=== PATIENT | male | born 1955 | race Caucasian/White ===

== ENCOUNTER 2021-07-18 11:16 | Outpatient (CLI) | payer MEDICARE, SELFPAY ==
--- NOTE | ~2021-07-18 | XR_ITS ---
EXAMINATION: XR chest 2V DATE: 07/18/2021 11:38 INDICATION: Chronic cough. TECHNIQUE: Frontal and lateral views of the chest were obtained. COMPARISON: Chest 2 views 04/17/2018 FINDINGS: There is mild atelectasis versus scarring at right lung base. No pleural effusion or pneumo thorax. Cardiomegaly is noted. Calcified hilar and mediastinal lymph nodes are consistent with old gr anulomatous disease. IMPRESSION: 1. Mild atelectasis versus scarring at right lung base. 2. Cardiomegaly. Reviewed, dictated and finalized at location B.
--- NOTE | ~2021-07-18 | XR_ITS ---
EXAM: XR sinus min 3V HISTORY: J34.89 - Other specified disorders of nose and nasal sinuses COMPARISON: None available FINDINGS: Normal mineralization. No abnormal intracranial calcification. Orbits are symmetric. No fr acture. Aerated spaces are clear. IMPRESSION: Normal sinus radiograph findings. Reviewed, dictated and finalized at location K.
== END 2021-07-18 11:17 | disposition home or self-care (01) ==
LOC: ANHIMG 11:19
PROVIDERS: PCP Internal Medicine; Visit Provider Internal Medicine
DX: J34.89 Other specified disorders of nose and nasal sinuses (principal); R05.3 Chronic cough; R09.81 Nasal congestion; R09.82 Postnasal drip; R51.9 Headache, unspecified; I51.7 Cardiomegaly
CPT/HCPCS: 70220; 71046

== ENCOUNTER 2022-11-06 10:38 | Outpatient (CLI) | payer MEDICARE, SELFPAY ==
--- NOTE | ~2022-11-06 | US_ITS ---
EXAMINATION: US venous doppler [facility] DATE: 11/06/2022 12:33 INDICATION: Lower limb edema. TECHNIQUE: Grayscale ultrasound images without and with compression and Doppler ultrasound images of the bilateral lower extremity veins were obtained. COMPARISON: None. FINDINGS: The visualized portions of right common femoral vein, profunda (deep) femoral vein, femoral vein, pop liteal vein, peroneal veins, posterior tibial veins, and greater saphenous vein outflow are patent. The visualized portions of left common femoral vein, profunda femoral vein, femoral vein, popliteal v ein, and greater saphenous vein outflow are patent. The calf veins are not well visualized. IMPRESSION: 1. No deep venous thrombosis. Reviewed, dictated and finalized at location A.
--- NOTE | ~2022-11-06 | XR_ITS ---
EXAMINATION: XR chest 2V DATE: 11/06/2022 11:56 INDICATION: Edema TECHNIQUE: PA and lateral views of the chest were obtained. COMPARISON: Chest radiograph dated 07/18/2021 FINDINGS: Opacities project over the lower lung zones on the frontal projection which appear to correspond to c ostochondral calcifications. Persistent mild atelectasis/scarring at the right lung base. Mild blunti ng at the bilateral posterior sulci suggestive of tiny bilateral pleural effusions. No pneumothorax. Cardiomegaly. There are bridging osteophytes at multiple levels in the spine, consistent with diffuse idiopathic skeletal hyperostosis (DISH). IMPRESSION: 1. Likely tiny bilateral pleural effusions and right basilar atelectasis/scarring. 2. Cardiomegaly. Reviewed, dictated and finalized at location L. IMPRESSION: 1. Likely tiny bilateral pleural effusions and right basilar atelectasis/scarri ng. 2. Cardiomegaly.
[2022-11-06 11:58] LABS: Anion Gap 5 mmol/L (8-16); Blood Urea Nitrogen 20 mg/dL (9-20); Carbon Dioxide 26 mmol/L (22-30); Chloride 105 mmol/L (98-107); Estimated Glomerular Filt Rate > 60; Glucose 98 mg/dL (65-110); Potassium 4.1 mmol/L (3.4-5.0); Sodium 136 mmol/L (137-145)
== END 2022-11-06 10:39 | disposition home or self-care (01) ==
PROVIDERS: PCP Internal Medicine; Visit Provider Internal Medicine
DX: R60.9 Edema, unspecified (principal); I87.2 Venous insufficiency (chronic) (peripheral); R05.9 Cough, unspecified; I51.7 Cardiomegaly
CPT/HCPCS: 36415; 71046; 80048; 93970

== ENCOUNTER 2022-11-13 10:22 | Outpatient (CLI) | payer MEDICARE, SELFPAY ==
[2022-11-13 11:13] LABS: Anion Gap 3 mmol/L (8-16); Blood Urea Nitrogen 28 mg/dL (9-20); Calcium 9.4 mg/dL (8.4-10.2); Carbon Dioxide 31 mmol/L (22-30); Chloride 101 mmol/L (98-107); Estimated Glomerular Filt Rate > 60; Glucose 92 mg/dL (65-110); Magnesium 2.4 mg/dL (1.6-2.3); Potassium 5.2 mmol/L (3.4-5.0); Sodium 135 mmol/L (137-145)
== END 2022-11-13 10:23 | disposition home or self-care (01) ==
LOC: ANHLAB 10:24
PROVIDERS: PCP Internal Medicine; Visit Provider Internal Medicine
DX: R60.9 Edema, unspecified (principal); I10 Essential (primary) hypertension; Z79.899 Other long term (current) drug therapy
CPT/HCPCS: 36415; 80048; 83735

== ENCOUNTER 2023-01-11 04:02 | Day surgery (SDC) | payer MEDICARE, SELFPAY ==
[2023-01-02 14:47] VITALS: BMI 41.3
[2023-01-11 13:08] VITALS: BP 118/76; PULSE 86; RESP 18; TEMP 36.6; O2SAT 97
[2023-01-11] MEDS: LACTATED RINGERS 1,000 ML 150 ML IV CONT (13:13)
--- NOTE | 2023-01-11 13:19 | WPDANESEPPF ---
Anes - Initial Pre Proc Eval Procedure: Operation Date: 01/11/23 14:30 Proposed Procedures p Screening Colonoscopy - Barron Ziegler MD Date/Time: 01/11/23 13:19 Surgeon: Barron Ziegler MD Pre Op Diagnosis: neoplasm screening Patient Data Age: 67 Gender: M Height: 1.91 m Weight: 142.2 kg Last Vital Signs Temp 97.8 F 01/11/23 13:08 Pulse 86 01/11/23 13:08 Resp 18 01/11/23 13:08 BP 118/76 01/11/23 13:08 Pulse Ox 97 01/11/23 13:08 O2 Del Method Room Air 01/11/23 13:08 Allergies Allergy/AdvReac Type Severity Reaction Status Date / Time BLAIR Inhibitors Allergy Intermediate Cough Verified 01/11/23 13:06 Home Medications Medication Instructions Recorded Confirmed Type metoprolol succinate 200 mg 200 mg PO DAILY #90 tabs 03/11/19 01/02/23 Rx tablet,extended release 24 hr folic acid 400 mcg tablet 1,200 mcg PO DAILY #90 tabs 06/08/19 01/02/23 Rx mecobalamin (vitamin B12) 1,000 1,000 mcg PO DAILY #90 tabs 06/08/19 01/02/23 Rx mcg chewable tablet cholecalciferol (vitamin D3) 50 50 mcg PO DAILY #90 caps 05/03/21 01/02/23 Rx mcg (2,000 unit) capsule apixaban 5 mg tablet (Eliquis) See Rx Instructions .Route 12/07/21 01/11/23 Rx .COMPLEX #90 tabs atorvastatin 40 mg tablet See Rx Instructions .Route 07/04/22 01/02/23 Rx .COMPLEX #90 tabs losartan 100 mg tablet See Rx Instructions .Route 07/04/22 01/02/23 Rx .COMPLEX #90 tabs triamcinolone acetonide 0.5 % 1 applic topical BID #60 grams 11/06/22 01/02/23 Rx topical cream furosemide 20 mg tablet 20 mg PO QAM #90 tabs 11/13/22 01/02/23 Rx diltiazem HCl 180 mg See Rx Instructions .Route 11/22/22 01/02/23 Rx capsule,extended release 24 hr, .COMPLEX #90 caps controlled Patient hx anesthesia problems: none Family hx anesthesia problems: none Results Review: All pre-operative results and documents have been reviewed as part of the pre-operative evaluation. [facility] Past Medical History Medical History (Updated 11/13/22 @ 09:27 by Demi Bryant [facility]) Abnormal finding of blood chemistry Benign essential hypertension Bitten or stung by nonvenomous insect and other nonvenomous arthropods, initial encounter Body mass index (BMI) 40.0-44.9, adult Body mass index (BMI) 45.0-49.9, adult Chronic a-fib Colon cancer screening Color vision deficiencies Edema Elevated glucose Elevated homocysteine Encounter for Medicare annual wellness exam Encounter for routine adult health examination without abnormal findings Encounter for special screening examination for neoplasm of prostate Follow up History of CVA (cerebrovascular accident) Hypersomnolence Injury of toenail Obesity On detention drug therapy Scrotal lesion Skin cancer screening Surgical History Surgical History History of total left hip replacement Family History Family History Mother Family history of heart disease in male family member before age 55 Family history of cardiovascular disease Social History Social History Smoking status: Never smoker Second hand tobacco smoke exposure: No Alcohol intake: current Drinks per week: 5 Alcohol use details: BEERS Substance use: never Substance use type: does not use Lack of Transportation: No Lack of Food: Never True Current Housing: I Have Housing Concerned About Future Housing: No Difficulty Paying Gas/Electric Bills: No Difficulty Paying for Meds: No Currently Unemployed: No Education: Master's Degree or Higher Difficulty w/ Childcare or Family Care: No Living arrangements: with family Gender identity (if verbalized by the patient): Male Spiritual care concerns: No Anes - Eval Final PreProcedure Day of Procedure 01/11/23 13:19 Patient weight: morbidly obese Heart: regular rate and rhythm
--- NOTE | 2023-01-11 13:51 | PM.HPGS ---
History of Present Illness History of Present Illness Consent: Risks, benefits, and alternatives have been discussed and questions answered. Patient agrees to proceed with procedure. Chief complaint: neoplasm screening Narrative: Ray Smith is a 67 year old male Presents for screening colonoscopy. Patient's current weight appetite and bowel movements are normal. Patient denies abdominal pain. He has had no bleeding. Family history noncontributory. Patient has a history of a colonoscopy 10 years ago that was unremarkable. He does have a distant history of a hip replacement. Currently treated for atrial fibrillation he requires Eliquis daily. This been held in anticipation of colonoscopy. Review of Systems Review of Systems: Review of systems noncontributory. [facility] Past Medical History Medical History (Updated 11/13/22 @ 09:27 by Demi Bryant [facility]) Abnormal finding of blood chemistry Benign essential hypertension Bitten or stung by nonvenomous insect and other nonvenomous arthropods, initial encounter Body mass index (BMI) 40.0-44.9, adult Body mass index (BMI) 45.0-49.9, adult Chronic a-fib Colon cancer screening Color vision deficiencies Edema Elevated glucose Elevated homocysteine Encounter for Medicare annual wellness exam Encounter for routine adult health examination without abnormal findings Encounter for special screening examination for neoplasm of prostate Follow up History of CVA (cerebrovascular accident) Hypersomnolence Injury of toenail Obesity On watermelon inspector drug therapy Scrotal lesion Skin cancer screening Surgical History Surgical History History of total left hip replacement Family History Family History Mother Family history of heart disease in male family member before age 55 Family history of cardiovascular disease Social History Social History Smoking status: Never smoker Second hand tobacco smoke exposure: No Alcohol intake: current Drinks per week: 5 Alcohol use details: BEERS Substance use: never Substance use type: does not use Lack of Transportation: No Lack of Food: Never True Current Housing: I Have Housing Concerned About Future Housing: No Difficulty Paying Gas/Electric Bills: No Difficulty Paying for Meds: No Currently Unemployed: No Education: Master's Degree or Higher Difficulty w/ Childcare or Family Care: No Living arrangements: with family Gender identity (if verbalized by the patient): Male Spiritual care concerns: No Meds Home Medications and Allergies Home Medications Medication Instructions Recorded Confirmed Type metoprolol succinate 200 mg 200 mg PO DAILY #90 tabs 03/11/19 01/02/23 Rx tablet,extended release 24 hr folic acid 400 mcg tablet 1,200 mcg PO DAILY #90 tabs 06/08/19 01/02/23 Rx mecobalamin (vitamin B12) 1,000 1,000 mcg PO DAILY #90 tabs 06/08/19 01/02/23 Rx mcg chewable tablet cholecalciferol (vitamin D3) 50 50 mcg PO DAILY #90 caps 05/03/21 01/02/23 Rx mcg (2,000 unit) capsule apixaban 5 mg tablet (Eliquis) See Rx Instructions .Route 12/07/21 01/11/23 Rx .COMPLEX #90 tabs atorvastatin 40 mg tablet See Rx Instructions .Route 07/04/22 01/02/23 Rx .COMPLEX #90 tabs losartan 100 mg tablet See Rx Instructions .Route 07/04/22 01/02/23 Rx .COMPLEX #90 tabs triamcinolone acetonide 0.5 % 1 applic topical BID #60 grams 11/06/22 01/02/23 Rx topical cream furosemide 20 mg tablet 20 mg PO QAM #90 tabs 11/13/22 01/02/23 Rx diltiazem HCl 180 mg See Rx Instructions .Route 11/22/22 01/02/23 Rx capsule,extended release 24 hr, .COMPLEX #90 caps controlled Allergies Allergy/AdvReac Type Severity Reaction Status Date / Time BLAIR Inhibitors Allergy Intermediate Cough Verified 01/11/23 13:06 Vital Sig
[2023-01-11 14:52] VITALS: BP 120/59; PULSE 56; RESP 22; O2SAT 97
[2023-01-11 15:02] VITALS: BP 114/63; PULSE 51; RESP 24; O2SAT 98
--- NOTE | 2023-01-11 15:04 | SUR.PHASEII ---
DR. Ziegler at beside and Instructed pt. to resume Eliquis tomorrow or Saturday. Pt. verbalized understanding.
[2023-01-11 15:12] VITALS: BP 137/83; PULSE 84; RESP 21; O2SAT 98
== END 2023-01-11 15:20 | disposition home or self-care (01) ==
PROVIDERS: PCP Internal Medicine; Visit Provider Internal Medicine Gastroenterology
PROC: 0DJD8ZZ Inspection of Lower Intestinal Tract, Via Natural or Artificial Opening Endoscopic (ICD-10-PCS; CPT 45378; principal; 2023-01-11 14:30)
DX: Z12.11 Encounter for screening for malignant neoplasm of colon (principal); D12.5 Benign neoplasm of sigmoid colon; K64.8 Other hemorrhoids; K57.30 Diverticulosis of large intestine without perforation or abscess without bleeding; I10 Essential (primary) hypertension; I48.20 Chronic atrial fibrillation, unspecified; Z86.73 Personal history of transient ischemic attack (TIA), and cerebral infarction without residual deficits; E66.01 Morbid (severe) obesity due to excess calories; Z68.39 Body mass index [BMI] 39.0-39.9, adult; Z79.01 Long term (current) use of anticoagulants
CPT/HCPCS: 45385; 88305; J2704; J7120